=== PATIENT | male | born 1995 | race Hispanic/Latino ===

== ENCOUNTER 2023-02-10 22:10 | Emergency (ER) | payer SELFPAY ==
--- NOTE | 2023-02-10 22:44 | RAD REPORT ---
EXAM DESCRIPTION: CT - Head Brain Wo Cont - 02/10/2023 10:37 pm CLINICAL HISTORY: HEADACHE COMPARISON: No comparisons TECHNIQUE: All CT scans are performed using dose optimization technique as appropriate and may inclu de automated exposure control or mA/KV adjustment according to patient size. FINDINGS: No intracranial hemorrhage, hydrocephalus or extra-axial fluid collection.No areas of brai n edema or evidence of midline shift. The paranasal sinuses and mastoids are clear. The calvarium is intact. IMPRESSION: No acute intracranial abnormality.
[2023-02-10 23:08] LABS: Absolute Lymphocytes (CBC) 2.3 K/uL (0.7-4.9); Hematocrit 44.4 % (39.6-49.0); Lymphocytes % 15.5 % (15.3-44.8); MCV 89.3 fL (80-100); MPV 8.1 fL (7.6-11.3); RBC Red Blood Cell Count 4.97 M/uL (4.33-5.43)
[2023-02-10 23:14] LABS: Protime INR 1.11
[2023-02-10] MEDS ORDERED: LORAZEPAM 1 MG TABLET ONE (23:31)
[2023-02-10 23:34] LABS: ALT/SGPT 53 U/L (16-61); AST/SGOT 21 U/L (15-37); Albumin 3.9 g/dL (3.4-5.0); Alkaline Phosphatase 57 U/L (45-117); BUN Blood Urea Nitrogen 13 mg/dL (7-18); Bicarbonate 23 mEq/L (21-32); Bilirubin Total 0.3 mg/dL (0.2-1.0); Glomerular Filtration Rate 125 ml/min (=/>90); Glucose Level 107 mg/dL (74-106); Potassium 3.6 mEq/L (3.5-5.1); Protein, Total 7.4 g/dL (6.4-8.2); Sodium Level 138 mEq/L (136-145)
[2023-02-10 23:35] LABS: Bilirubin Direct < 0.1 mg/dL (0-0.2); Bilirubin Indirect, Calculated ND mg/dL (0.2-0.8)
[2023-02-11 01:07] LABS: Specific Gravity 1.015 (1.005-1.030); Urine Bilirubin NEGATIVE (Negative); Urine Blood Negative (Negative); Urine Clarity Clear (Clear); Urine Color Light-Yellow (Yellow); Urine Glucose NEGATIVE (Negative); Urine Protein NEGATIVE (Negative); Urine Urobilinogen Normal (Normal); Urine pH 5.5 (5.0-7.0)
[2023-02-11 01:21] LABS: Barbiturates NEGATIVE (NEGATIVE); Benzodiazepines NEGATIVE (NEGATIVE); Cocaine NEGATIVE (NEGATIVE); METHAMPHETAM NEGATIVE (NEGATIVE); Methadone NEGATIVE (NEGATIVE); Opiates NEGATIVE (NEGATIVE); Phencyclidine NEGATIVE (NEGATIVE); THC Cannibis POSITIVE (NEGATIVE)
--- NOTE | 2023-02-11 01:52 | ER ---
Nurse's Notes [facility] Name: Tucker Bravo Age: 27 yrs Sex: Male : 1995 Arrival Date: 02/10/2023 Time: 22:10 Bed 16 Private MD: Diagnosis: Impulse control disorder Presentation: 02/10 22:20 Chief complaint: EMS states: Pt was in senior living when he told an officer he wanted to hurt jb4 himself and was banging the back of his head on the wall. Pt reported that if he could jump off a bridge he would. Coronavirus screen: At this time, the client does not indicate any symptoms associated with coronavirus-19. Ebola Screen: No symptoms or risks identified at this time. 22:20 Method Of Arrival: EMS: [facility] jb4 22:20 Initial Sepsis Screen: Does the patient meet any 2 criteria? No. Patient's initial jb4 sepsis screen is negative. Does the patient have a suspected source of infection? No. Patient's initial sepsis screen is negative. Risk Assessment: Do you want to hurt yourself or someone else? Patient reports desire/thoughts of hurting themselves or someone else. Provider notified. Onset of symptoms was February 10, 2023. Transition of care: patient was not received from another setting of care. 22:20 Acuity: MAIN 2 jb4 Historical: - Allergies: 23:15 No Known Allergies; jb4 - Home Meds: 23:15 None [Active]; jb4 - PMHx: 23:15 None; jb4 - PSHx: 23:15 None; jb4 - Immunization history:: Adult Immunizations up to date. - Social history:: Smoking status: Patient denies any tobacco usage or history of. - Family history:: not pertinent. Screenin/01 05:32 [facility] ED Fall Risk Assessment (Adult) History of falling in the last 3 months, jb4 including since admission No falls in past 3 months (0 pts) Confusion or Disorientation No (0 pts) Score/Fall Risk Level 0 - 2 = Low Risk Oriented to surroundings, Maintained a safe environment. Abuse screen: Denies threats or abuse. Nutritional screening: No deficits noted. Tuberculosis screening: No symptoms or risk factors identified. Assessment: 02/10 22:20 General: Appears in no apparent distress. comfortable, Behavior is cooperative, jb4 anxious. Pain: Complains of pain in scalp Pain does not radiate. Pain currently is 6 out of 10 on a pain scale. Neuro: Level of Consciousness is awake, alert, obeys commands, Oriented to person, place, time, situation. Cardiovascular: Patient's skin is warm and dry. Respiratory: Airway is patent Respiratory effort is even, unlabored, Respiratory pattern is regular, symmetrical. GI: No signs and/or symptoms were reported involving the gastrointestinal system. : No signs and/or symptoms were reported regarding the genitourinary system. EENT: No signs and/or symptoms were reported regarding the EENT system. Derm: Skin is intact, Skin is pink, warm \\T\\ dry. Musculoskeletal: Circulation, motion, and sensation intact. Range of motion: intact in all extremities. 23:16 Reassessment: Patient appears in no apparent distress at this time. Patient and/or jb4 family updated on plan of care and expected duration. Pain level reassessed. Patient is alert, oriented x 3, equal unlabored respirations, skin warm/dry/pink. 08 00:00 Reassessment: Patient appears in no apparent distress at this time. Patient and/or jb4 family updated on plan of care and expected duration. Pain level reassessed. Patient is alert, oriented x 3, equal unlabored respirations, skin warm/dry/pink. 01:00 Reassessment: Patient appears in no apparent distress at this time. Patient and/or jb4 family updated on plan of care and expected duration. Pain level reassessed. Patient is alert, oriented x 3, equal unlabored respirations, skin warm/dry/pink. 02:00 Reassessment: Patient appears in no apparent distress at this time. Patient and/or jb4 family updated on plan of care and expected duration. Pain level reassessed. Patient is alert, oriented x 3, equal unlabored respirations, skin warm/dry/pink. 03:00 Reassessment: Patient appears in no apparent distress at this time. Patient and/or jb4 family updated on plan of care and expected duration. Pain level reassessed. Patient is alert, oriented x 3, equal unlabored respirations, skin warm/dry/pink. 04:00 Reassessment: Patient appears in no apparent distress at this time. Patient and/or jb4 family updated on plan of care and expected duration. Pain level reassessed. Patient is alert, oriented x 3, equal unlabored respirations, skin warm/dry/pink. 05:00 Reassessment: Patient appears in no apparent distress at this time. Patient and/or jb4 family updated on plan of care and expected duration. Pain level reassessed. Patient is alert, oriented x 3, equal unlabored respirations, skin warm/dry/pink. 06:15 Reassessment: Patient appears in no apparent distress at this time. Patient and/or jb4 family updated on plan of care and expected duration. Pain level reassessed. Patient is alert, oriented x 3, equal unlabored respirations, skin warm/dry/pink. Pt now denying SI and HI. Pt signed safety plan, given information for who to call, talked with pt about ways to de-escalate himself when needed and who he can turn to or call. Pt verbalized understanding of information. Denies questions or concerns. Psych: 02/10 22:20 [place] Suicide Severity Screening: In the past month, have you wished you were jb4 or wished you could go to sleep and not wake up? Patient responds "yes." Based off the client's responses additional C-SSRS screening is required. "In the past month, have you actually had any thoughts of killing yourself?" Patient responds "yes." "In your lifetime, have you ever done anything, started to do anything, or prepared to do anything to end your life?" Patient responds "no.". Subjective: Patient's mood is hopeless. Objective: Patient is cooperative, Speech is normal, Affect is appropriate. Interventions: Removed personal items and placed in bag. Safety Checks: Personal items have not been removed. Door is open. No visitors are present at this time. Pt denies substance abuse. Commitment: Patient will be a voluntary commitment. Vital Signs: 22:20 BP 138 / 88; Pulse 70; Resp 16; Temp 98.9(O); Pulse Ox 98.9% on R/A; Weight 93.44 kg; jb4 Height 5 ft. 5 in. ; 22:20 Body Mass Index 34.28 (93.44 kg, 165.1 cm) [facility] ED Course: 22:18 Patient arrived in ED. [facility] 22:19 Reji Strong PA is PHCP. cp 22:19 Rolando Whitley MD is Attending Physician. cp 22:38 CT Head Brain wo Cont In Process Unspecified. EDMS 23:14 Barrett Thomas, RN is Primary Nurse. jb4 23:15 Triage completed. jb4 23:15 Arm band placed on right wrist. jb4 02/11 01:52 Called [facility] for Pt Evaluation, spoke with Sean. rv1 03:42 Cindi with [facility] is doing pt evaluation via phone call. rv1 05:32 Patient has correct armband on for positive identification. Bed in low position. Call [facility] light in reach. Side rails up X 1. 05:32 No provider procedures requiring assistance completed. jb4 06:15 IV discontinued, intact, bleeding controlled, No redness/swelling at site. Pressure jb4 dressing applied. Administered Medications: 02/10 23:24 Drug: LORazepam PO 1 mg Route: PO; jb4 Outcome: 02/11 01:51 ER care complete, transfer ordered by MD. cp 05:35 Discharge ordered by . sp4 06:15 Discharged to home ambulatory. jb4 06:15 Condition: stable 06:15 Discharge instructions given to patient, Instructed on discharge instructions, follow up and referral plans. Demonstrated understanding of instructions, follow-up care. 06:16 Patient left the ED. jb4 Signatures: Dispatcher [employer] EDSC Reji Strong PA PA cp Barrett Thomas, RN RN jb4 Carolina Ashley rv1 Rolando Whitely MD MD sp4
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
[2023-02-11 06:19] VITALS: BP 138/88; TEMP 98.9
--- NOTE | 2023-02-12 17:39 | EKG ---
Test Date: 2023-02-11 Test Time: 00:11:09 Pie Maker: RICHI MEASUREMENT RESULTS: Intervals: Rate: 72 AL: 124 QRSD: 96 QT: 356 QTc: 389 [place]: P: -5 AL: 124 QRS: 50 T: 46 INTERPRETIVE STATEMENTS: Normal sinus rhythm Normal ECG No previous ECG available for comparison Electronically Signed On 02-12-23 17:34:50 CDT by Augie Brown
== END 2023-02-11 06:16 | disposition home or self-care (01) ==
LOC: ER 22:10
DX: F63.9 Impulse disorder, unspecified (principal)
CPT/HCPCS: 36415; 70450; 80048; 80076; 80143; 80179; 80307; 81003; 82077; 85025; 85610; 85730; 93005